=== PATIENT | female | born 1935 | race Caucasian/White ===

== ENCOUNTER → 2016-09-23 | Outpatient (REF) | payer OTHER ==
[2016-09-24 14:06] LABS: FERRITIN 30 NG/ML (8-252); PERCENT SATURATION 25.3 % (13.2-37.4); TOTAL IRON BINDING CAPACITY 400 UG/DL (250-450)
[2016-09-24 14:09] LABS: FOLATE > 24.0 NG/ML (>5.4)
[2016-09-24 14:13] LABS: VITAMIN B12 LEVEL 723 PG/ML (247-911)
== END ==
LOC: M LAB REF 08:46
PROVIDERS: ATTEND Internal Medicine
DX: D64.9 Anemia, unspecified (principal)

== ENCOUNTER → 2017-04-21 | Outpatient (CLI) | payer OTHER | LOC: M ONCR 13:23 | DX: C50.211 Malignant neoplasm of upper-inner quadrant of right female breast (principal) | CPT/HCPCS: G0463 ==

== ENCOUNTER → 2017-10-27 | Outpatient (CLI) | payer OTHER | LOC: M ONCR 14:16 | DX: C50.211 Malignant neoplasm of upper-inner quadrant of right female breast (principal) | CPT/HCPCS: G0463 ==

== ENCOUNTER → 2019-09-13 | Outpatient (REF) | payer MEDICARE ==
[2019-09-13 20:13] LABS: FOLATE 8.1 NG/ML; VITAMIN B12 LEVEL 438 PG/ML
== END ==
LOC: M LAB REF 17:11
PROVIDERS: ATTEND Internal Medicine
DX: F03.90 Unspecified dementia, unspecified severity, without behavioral disturbance, psychotic disturbance, mood disturbance, and anxiety (principal)

== ENCOUNTER → 2020-08-01 | Outpatient (REF) | payer MEDICARE | LOC: M LAB REF 16:06 | PROVIDERS: ATTEND Internal Medicine | DX: N39.0 Urinary tract infection, site not specified (principal) ==

== ENCOUNTER 2020-11-13 13:44 | Inpatient (IN) | payer MEDICARE ==
[~2020-11-13] VITALS: Ht 165.1 cm; Wt 50.2 kg
[2020-11-13] MEDS ORDERED: BUSP15TA47 (13:58)
[2020-11-13] MEDS ORDERED: TRAZ1TAB14 PO (13:58)
[2020-11-13] MEDS ORDERED: SERT50TA29 (13:58)
[2020-11-13] MEDS ORDERED: OMEP-218 (13:58)
[2020-11-13] MEDS ORDERED: LISI40TA4 (13:58)
[2020-11-13] MEDS ORDERED: TRAZ-252 PO (13:58)
[2020-11-13] MEDS ORDERED: NS 1,000 ML IV ONE (17:00)
[2020-11-13] MEDS ORDERED: ONDANSETRON 4MG/2ML VIAL IV ONE (17:00)
[2020-11-13 17:52] LABS: BASO # 0.1 10^3/uL (0.0-0.2); BASO % 0.3 % (0.0-1.0); EOS % 0.1 % (0.0-3.0); HEMATOCRIT 33.9 % (36.0-47.0); HEMOGLOBIN 10.9 g/dl (12.0-15.5); LYMPH # 1.3 10^3/uL (1.5-5.0); LYMPH % 7.5 % (24.0-44.0); MEAN CORPUSCULAR HEMOGLOBIN 28.9 pg (27.0-33.0); MEAN CORPUSCULAR HGB CONC 32.2 g/dl (32.0-36.5); MEAN CORPUSCULAR VOLUME 89.9 fl (80.0-96.0); MONO % 5.8 % (2.0-8.0); NEUTROPHILS # 14.9 10^3/uL (1.5-8.5); NEUTROPHILS % 85.6 % (36.0-66.0); PLATELET COUNT, AUTOMATED 354 10^3/uL (150-450); RED BLOOD COUNT 3.77 10^6/uL (4.00-5.40); WHITE BLOOD COUNT 17.4 10^3/uL (4.0-10.0)
[2020-11-13 18:28] LABS: ALBUMIN 3.4 GM/DL (3.2-5.2); BILIRUBIN,DIRECT 0.1 MG/DL (0.0-0.2); BILIRUBIN,TOTAL 0.4 MG/DL (0.2-1.0); CALCIUM LEVEL 9.5 MG/DL (8.8-10.2); CK-MB VALUE MASS 1.6 NG/ML (<3.6); CREATININE FOR GFR 1.16 MG/DL (0.55-1.30); GLOMERULAR FILTRATION RATE 47.2 (>32); MB/CK RELATIVE INDEX 8.89 (< OR =4); POTASSIUM SERUM 4.1 MEQ/L (3.5-5.1); TROPONIN I 0.05 NG/ML (< 0.10)
[2020-11-13] MEDS ORDERED: ISOVUE-370 76% 100ML VIAL As Ordered ONE (19:13)
--- NOTE | 2020-11-13 19:18 | REP ---
INDICATION: leukocytosis COMPARISON: 06/16/2017. TECHNIQUE: PA/Lateral FINDINGS: Lungs: Clear, no infiltrate. Heart: Normal in size. Mediastinum: There is calcification of the thoracic aorta. The mediastinal silhouette is unchanged. Pleural angles: Unremarkable.. Bones and soft tissues: There is osteopenia. There are degenerative changes of the spine. IMPRESSION: No acute pulmonary disease. <Electronically signed by Landen Gaona > 11/13/20 1918
--- NOTE | 2020-11-13 19:55 | REPVR ---
PROCEDURE INFORMATION: Exam: CT Abdomen And Pelvis With Contrast Exam date and time: 11/13/2020 7:32 PM Age: 85 years old Clinical indication: Nausea; Additional info: Nausea vomiting, abd pain TECHNIQUE: Imaging protocol: Computed tomography of the abdomen and pelvis with contrast. Radiation optimization: All CT scans at this facility use at least one of these dose optimization techniques: automated exposure control; mA and/or kV adjustment per patient size (includes targeted exams where dose is matched to clinical indication); or iterative reconstruction. Contrast material: ISOUVE 370; Contrast volume: 100 ml; Contrast route: INTRAVENOUS (IV); COMPARISON: CR Chest, 2 view PA, Lat 11/13/2020 6:14 PM FINDINGS: Lungs: Parenchymal scarring right middle lobe. Liver: There is a diffuse decrease in hepatic parenchymal density, consistent with steatosis. Liver cysts measure up to 1.3 cm. Liver otherwise unremarkable. Gallbladder and bile ducts: Normal. No calcified stones. No ductal dilation. Pancreas: There is diffuse pancreatic atrophy. Spleen: Normal. No splenomegaly. Adrenal glands: Normal. No mass. Kidneys and ureters: Simple renal cysts measure up to 2.2 cm in the left kidney. No follow-up suggested. Kidneys otherwise unremarkable. Stomach and bowel: Moderate diverticulosis is present in the distal colon. No diverticulitis. Appendix: No evidence of appendicitis. Intraperitoneal space: See "Vasculature" finding. Vasculature: The aortoiliac vessels demonstrate moderate atherosclerotic calcification. Cystic structure measuring 1.7 cm demonstrated adjacent to the portal vein of uncertain significance. No features to suggest an abscess. Finding may represent a mesenteric cyst. Lymph nodes: Unremarkable. No enlarged lymph nodes. Urinary bladder: Unremarkable as visualized. Reproductive: There has been a hysterectomy. Right ovarian cyst measures 1.9 cm. Bones/joints: Shallow dextroscoliosis. Severe central spinal stenosis L3-L4, moderate to severe central spinal stenosis L4-L5 bulging annulus L5-S1. Slight anterolisthesis of L3 on L4 and L4 on L5. Soft tissues: Unremarkable. Other findings: Osteoporosis. IMPRESSION: 1. There is a diffuse decrease in hepatic parenchymal density, consistent with steatosis. 2. There is diffuse pancreatic atrophy. 3. Moderate diverticulosis is present in the distal colon. No diverticulitis. 4. There has been a hysterectomy. 5. Right ovarian cyst measures 1.9 cm. No further imaging is recommended. (Reference: Chris) References: Chris et al. Management of Incidental Adnexal Findings on CT and MRI: A White Paper of the ACR Incidental Findings Committee, J Am Edward Radiol. 2019;17(2):248-254. 6. Cystic structure measuring 1.7 cm demonstrated adjacent to the portal vein of uncertain significance. No features to suggest an abscess. Finding may represent a mesenteric cyst. COMMENTS: Consistent with the [employer]'s Incidental Findings Committee white paper (J Am Edward Radiol 2018): Any incidental renal lesion less than 1 cm or classified as too small to characterize, or any incidental cystic renal lesion characterized as simple-appearing, is likely benign. No follow-up imaging is recommended for these lesions per consensus recommendations based on imaging criteria. Electronically signed by: Darnell Haley On 11/13/2020 19:55:29 PM
--- NOTE | 2020-11-13 20:39 | ECGEPIP ---
[facility] - ED Test Date: 2020-11-13 Pat Name: NOEMY SHERMAN Department: Room: - Gender: Female Manager Financial Reporting: [facility] : 1935 Requested By: SARIKA FAJARDO PA-C. Order Number: [id number] Reading MD: Rowan Monge Measurements Intervals [place] Rate: 84 P: 71 WA: 150 QRS: 49 QRSD: 78 T: 64 QT: 374 QTc: 441 Interpretive Statements Normal sinus rhythm NSTTW abnormalities No prior Electronically Signed on 11-13-2020 20:39:08 EDT by Rowan Monge
[2020-11-13] MEDS ORDERED: MAALOX 30 ML SUSP *UDC PO PRN (21:15)
[2020-11-13] MEDS ORDERED: MOM 30ML SUSPENSION UDC PO PRN (21:15)
[2020-11-13] MEDS ORDERED: ONDANSETRON 4MG/2ML VIAL IV PRN (21:15)
[2020-11-13] MEDS ORDERED: ACETAMINOPHEN TAB 650MG DOSE (2X325MG) PO PRN (21:15)
[2020-11-13] MEDS ORDERED: OMEP1CAP73 PO (21:22)
[2020-11-13] MEDS ORDERED: LISI40TA4 PO (21:22)
[2020-11-13] MEDS ORDERED: BUSP15TA47 PO (21:22)
[2020-11-13] MEDS ORDERED: SERT50TA29 PO (21:28)
[2020-11-13] MEDS ORDERED: TRAZ1TAB10 PO (21:28)
[2020-11-13] MEDS ORDERED: TRAZ-186 PO (21:28)
[2020-11-13] MEDS ORDERED: HOME MED LIST COMPLETE! XX SCH (21:30)
[2020-11-13] MEDS ORDERED: traZODone 50 MG TAB PO ONE (21:45)
--- NOTE | 2020-11-13 21:52 | HPEPDOC ---
[facility] Medical History & Physical Date of Admission Nov 13, 2020 Date of Service: Nov 13, 2020 Attending Physician: CRISTIAN CASTELLON MD History and Physical CHIEF COMPLAINT: [85 y/o female presents with 2 weeks of n/v/d] HISTORY OF PRESENT ILLNESS: [This is an 85 y/o female with a pmh of advanced dementia, htn, breast ca s/p lumpectomy who reports to our ED on 11/13 with one of her home health aides with a cc of n/v/d and increasing fatigue over the past 2 weeks. Patient herself is unable to provide me any history. Patient's home health aide in the room tells me that they first noticed her symptoms of vomiting approx 2 weeks ago and noticed diarrhea begin soon after. Aides states that the symptoms come and go and do not feel as though the vomiting is related to food. Aides state that her appetite has waxed and waned in this time period. They have never noted fevers, syncope, and deny recent falls.] PAST MEDICAL HISTORY: 1. [See HPI PAST SURGICAL HISTORY: 1. [Lumpectomy]. SOCIAL HISTORY: Patient lives at home with 19/10 home health aide support, rest of social hx unable to be obtained d/t mentation. FAMILY HISTORY: Unable to obtain d/t mentation. ALLERGIES: Please see below. REVIEW OF SYSTEMS: Unable to obtain d/t mentation. HOME MEDICATIONS: Please see below. PHYSICAL EXAMINATION: VITAL SIGNS: Please see below. GENERAL APPEARANCE: [This is a frail appearing 85 y/o female. She is resting in bed and does not appear to be in any acute distress.]. HEENT: [No mass or lesion. EOMI. No scleral icterus. Nares patent. Oral mucosa dry.]. CARDIOVASCULAR: [Regular rate, rhythm. No murmurs, rubs, gallops]. LUNGS: [Good air flow b/l. No wheezing, rales, rhonchi.]. ABDOMEN: [Soft, nontender]. MUSCULOSKELETAL: [No joint deformity noted]. EXTREMITIES: [No pedal edema appreciated. No overlying skin changes. Pulses intact.]. NEUROLOGICAL: [Patient is confused.]. PSYCHIATRIC: [Patient is confused.]. LABORATORY DATA: See below. IMAGING: [CXR: Pleural angles: Unremarkable.. Bones and soft tissues: There is osteopenia. There are degenerative changes of the spine. IMPRESSION: No acute pulmonary disease. CT Abd/pelvis: References: Chris et al. Management of Incidental Adnexal Findings on CT and MRI: A White Paper of the ACR Incidental Findings Committee, J Am Edward Radiol. 2019;17(2):248-254. 6. Cystic structure measuring 1.7 cm demonstrated adjacent to the portal vein of uncertain significance. No features to suggest an abscess. Finding may represent a mesenteric cyst. ] MICROBIOLOGY: Please see below. ASSESSMENT: [This is an 85 y/o female with a pmh of advanced dementia, htn, breast ca s/p lumpectomy who reports to our ED on 11/13 with one of her home health aides with a cc of n/v/d and increasing fatigue over the past 2 weeks]. . PLAN: 1. [SIRS - patient meets sirs criteria upon presentation with tachycardia and wbc of 17.4 - source is UTI vs. gastroenteritis - UA is mildly +, gi panel sent - will begin rocephin - zofran for n/v - patient received fluid boluses in ed, will give IVF on the floor - admit to med surg for tx 2. Dementia - continue trazodone, buspar, ssri - patient sitter 3. HTN - continue lisinopril 4. GERD - continue omeprazole 5 Protein calorie malnutrition BMI is 18.5 DVT prophylaxis - mechanical]. Vital Signs Vital Signs Date Time Temp Pulse Resp B/P (MAP) Pulse Ox O2 Delivery O2 Flow Rate FiO2 11/13/20 18:05 88 16 146/68 (94) 94 Room Air 11/13/20 13:45 97.9 Laboratory Data Labs 24H Laboratory Tests 2 11/13/20 17:38: Immature Granulocyte % (Auto) 0.7, Neutrophils (%) (Auto) 85.6H, Lymphocytes (%) (Auto) 7.5L, Monocytes (%) (Auto) 5.8, Eosinophils (%) (Auto) 0.1, Basophils (%) (Auto) 0.3, Neutrophils # (Auto) 14.9H, Lymphocytes # (Auto) 1.3L, Monocytes # (Auto) 1.0H, Eosinophils # (Auto) 0.0, Basophils # (Auto) 0.1, Nucleated Red Blood Cells % (auto) 0.0, Anion Gap 5L, Glomerular Filtration Rate 47.2, Lactic Acid Level 0.9, Calcium Level 9.5, Total Bilirubin 0.4, Direct Bilirubin 0.1, Aspartate Amino Transf (AST/SGOT) 12, Alanine Aminotransferase (ALT/SGPT) 12, Alkaline Phosphatase 69, Total Creatine Kinase 18L, Creatine Kinase MB 1.6, Creatine Kinase MB Relative Index 8.89H, Troponin I 0.05, Total Protein 7.0, Albumin 3.4, Albumin/Globulin Ratio 0.9L, Lipase 57L 11/13/20 17:41: Urine Color YELLOW, Urine Appearance HAZY, Urine pH 5.0, Urine Specific [place] 1.019, Urine Protein 1+H, Urine Glucose (UA) NEGATIVE, Urine Ketones TRACEH, Urine Blood NEGATIVE, Urine Nitrite NEGATIVE, Urine Bilirubin NEGATIVE, Urine Urobilinogen 0.2, Urine Leukocyte Esterase 2+H, Urine WBC (Auto) 13H, Urine RBC (Auto) 2, Urine Hyaline Casts (Auto) 6, Urine Bacteria (Auto) 1+H, Urine Squamous Epithelial Cells 2, Urine Mucus (Auto) SMALL, Urine Sperm (Auto) 11/13/20 21:20: CBC/BMP Laboratory Tests 11/13/20 17:38 Microbiology Microbiology 11/13/20 Urine Culture, Received Pending Home Medications Scheduled Buspirone HCl (Buspirone HCl) 15 Mg Tablet, 15 MG PO BID Lisinopril (Lisinopril) 40 Mg Tablet, 40 MG PO QHS Omeprazole (Omeprazole) 20 Mg Capsule.dr, 20 MG PO DAILY Sertraline HCl (Sertraline HCl) 50 Mg Tablet, 75 MG PO BID Trazodone HCl (Trazodone HCl) 50 Mg Tablet, 25 MG PO DAILY TAKES AT NOON Trazodone HCl (Trazodone HCl) 50 Mg Tablet, 75 MG PO QHS Allergies Coded Allergies: No Known Allergies (Unverified , 11/13/20) A-FIB/CHADSVASC A-FIB History Current/History of A-Fib/PAF?: No VINAY LARSEN Nov 13, 2020 21:52 CRISTIAN CASTELLON MD Nov 19, 2020 06:44
[2020-11-13] MEDS ORDERED: PILL CUTTER 1 EACH XX ONE (21:55)
[2020-11-13] MEDS: NS 1,000 ML IV SCH (22:00)
[2020-11-13] MEDS ORDERED: PILL CUTTER 1 EACH XX PRN (22:05)
[2020-11-13] MEDS: lisinopriL 40 MG TAB PO SCH (22:07)
[2020-11-13] MEDS: busPIRone 5 MG TAB PO SCH (22:08)
[2020-11-13] MEDS: SERTRALINE HCL 25 MG TABLET PO SCH (22:11)
[2020-11-13] MEDS: cefTRIAXone SOD 1 GM in D5W MINI-BAG PLUS 50 ML IV SCH (22:14)
[2020-11-14] VITALS (8 sets, daily range): BP systolic 148–200; BP diastolic 6–104
[2020-11-14] MEDS ORDERED: HALOPERIDOL 5MG/ML VIAL (J1630 PER 1) IV PRN (02:25)
[2020-11-14] MEDS ORDERED: HALOPERIDOL 5MG/ML VIAL (J1630 PER 1) IM ONE (02:30)
[2020-11-14] MEDS: HALOPERIDOL 5MG/ML VIAL (J1630 PER 1) IM PRN ×4 (02:36→22:25)
[2020-11-14 06:12] LABS: HEMATOCRIT 29.3 % (36.0-47.0); HEMOGLOBIN 9.3 g/dl (12.0-15.5); MEAN CORPUSCULAR HEMOGLOBIN 28.8 pg (27.0-33.0); MEAN CORPUSCULAR HGB CONC 31.7 g/dl (32.0-36.5); MEAN CORPUSCULAR VOLUME 90.7 fl (80.0-96.0); PLATELET COUNT, AUTOMATED 290 10^3/uL (150-450); RED BLOOD COUNT 3.23 10^6/uL (4.00-5.40); WHITE BLOOD COUNT 12.2 10^3/uL (4.0-10.0)
[2020-11-14 06:31] LABS: BLOOD UREA NITROGEN 17 MG/DL (7-18); CALCIUM LEVEL 9.1 MG/DL (8.8-10.2); CARBON DIOXIDE LEVEL 29 MEQ/L (21-32); CHLORIDE LEVEL 110 MEQ/L (98-107); CREATININE FOR GFR 0.89 MG/DL (0.55-1.30); GLOMERULAR FILTRATION RATE > 60.0 (>32); GLUCOSE, FASTING 81 MG/DL (70-100); MAGNESIUM LEVEL 1.9 MG/DL (1.8-2.4); POTASSIUM SERUM 3.9 MEQ/L (3.5-5.1); SODIUM LEVEL 142 MEQ/L (136-145)
[2020-11-14] MEDS ORDERED: **hydrALAZINE** 50 MG TAB PO ONE (07:35)
[2020-11-14] MEDS: NS 1,000 ML IV SCH ×2 (08:22→19:42)
[2020-11-14] MEDS: SERTRALINE HCL 25 MG TABLET PO SCH ×2 (09:00→19:44)
[2020-11-14] MEDS: traZODone 25MG PER 1/2 TABLET PO SCH (09:00)
[2020-11-14] MEDS: busPIRone 5 MG TAB PO SCH ×2 (09:00→19:43)
[2020-11-14] MEDS: OMEPRAZOLE 20 MG CAP PO SCH (09:00)
--- NOTE | 2020-11-14 14:37 | ECGEPIP ---
[facility] Test Date: 2020-11-14 Pat Name: NOEMY SHERMAN Department: Room: [place] [address] Gender: Female Pass Worker: KARIE : 1935 Requested By: JAIDEN CHANEY Order Number: [id number] Reading MD: Abdirahman Quigley Measurements Intervals [place] Rate: 83 P: 57 CO: 146 QRS: 27 QRSD: 82 T: 55 QT: 374 QTc: 439 Interpretive Statements Normal sinus rhythm Within normal limits. Electronically Signed on 11-14-2020 14:36:44 EDT by Abdirahman Quigley
[2020-11-14] MEDS: ASPIRIN 325 MG TAB PO ONE ×2 (15:02→17:03)
[2020-11-14] MEDS: LORazepam 2 MG/ML VIAL IV PRN (15:03)
[2020-11-14 15:04] LABS: FREE T4 1.11 NG/DL (0.76-1.46); THYROID STIMULATING HORMONE 0.688 uIU/ML (0.358-3.740)
--- NOTE | 2020-11-14 16:39 | IPNPDOC ---
Date Seen The patient was seen on 11/14/20. Progress Note SUBJECTIVE: Patient seen and examined at bedside. She appears visibly confused but is alert. She states that she has no pain. No shortness of breath. No nausea vomiting or diarrhea. OBJECTIVE PHYSICAL EXAMINATION: VITAL SIGNS: please see below General: NAD, comfortable HEENT: PERRLA, EOMI, sclerae clear Neck: supple, normal ROM, no JVD Respiratory: lungs CTAB, no wheeze, no rales, no crackles CVS: RRR, normal S1, S2, no murmurs Abdo: soft, no masses, no hepatosplenomegaly, BS+, no rebound tenderness Extremities: no edema, pulses 2+ MSK: no joint deformities, normal ROM Neuro: no focal neuro deficits, moving all 4 extremities, CN2-12 intact. Strength 5/5 in all 4 extremities. No nystagmus. Psych: calm, cooperative, AAO x 3 LABORATORY DATA, IMAGING STUDIES, MICROBIOLOGY: Please see below. Echocardiogram: ordered on 11/14/20 DVT prophylaxis ordered?: SCDs. TEDs. ASSESSMENT AND PLAN: This is an 85 y/o female with a pmh of advanced dementia, htn, breast ca s/p lumpectomy who reports to our ED on 11/13 with one of her home health aides with a cc of n/v/d and increasing fatigue over the past 2 weeks PROBLEMS: 1. [SIRS - patient meets sirs criteria upon presentation with tachycardia and wbc of 17.4 - source is UTI vs. gastroenteritis - UA is mildly +, culture negative, blood cultures pending. - GI panel is pending - c/w rocephin - zofran for n/v - patient received fluid boluses in ed, will give IVF on the floor - admit to med surg for tx 2. Dementia - continue trazodone, buspar, ssri - patient sitter 3. Elevated troponin - patient is not reporting any chest pain - trop 0.05. 0.12.0.16 - EKG shows no acute ischemic changes - ordered ASA 325 mg, lipitor 80 - 2D echo ordered - I discussed with Dr. Bauman, belives this to be a Type II [place] in setting of SIRS/Sepsis, and not true ACS - will continue to trend troponins. For now, ASA/statin. 4. HTN - continue lisinopril 5. GERD - continue omeprazole DVT prophylaxis - mechanical VS, [facility]&O[facility]O Vital Signs Date Time Temp Pulse Resp B/P (MAP) Pulse Ox O2 Delivery O2 Flow Rate FiO2 11/14/20 14:00 98.7 93 17 150/6 (54) 97 Room Air I&O- Last 24 Hours up to 6 AM 11/14/20 06:00 Intake Total 725 ml Balance 725 ml Laboratory Data 24H LABS Laboratory Tests 2 11/13/20 17:38: Immature Granulocyte % (Auto) 0.7, Neutrophils (%) (Auto) 85.6H, Lymphocytes (%) (Auto) 7.5L, Monocytes (%) (Auto) 5.8, Eosinophils (%) (Auto) 0.1, Basophils (%) (Auto) 0.3, Neutrophils # (Auto) 14.9H, Lymphocytes # (Auto) 1.3L, Monocytes # (Auto) 1.0H, Eosinophils # (Auto) 0.0, Basophils # (Auto) 0.1, Nucleated Red Blood Cells % (auto) 0.0, Anion Gap 5L, Glomerular Filtration Rate 47.2, Lactic Acid Level 0.9, Calcium Level 9.5, Total Bilirubin 0.4, Direct Bilirubin 0.1, Aspartate Amino Transf (AST/SGOT) 12, Alanine Aminotransferase (ALT/SGPT) 12, Alkaline Phosphatase 69, Total Creatine Kinase 18L, Creatine Kinase MB 1.6, Creatine Kinase MB Relative Index 8.89H, Troponin I 0.05, Total Protein 7.0, Albumin 3.4, Albumin/Globulin Ratio 0.9L, Lipase 57L 11/13/20 17:41: Urine Color YELLOW, Urine Appearance HAZY, Urine pH 5.0, Urine Specific [place] 1.019, Urine Protein 1+H, Urine Glucose (UA) NEGATIVE, Urine Ketones TRACEH, Urine Blood NEGATIVE, Urine Nitrite NEGATIVE, Urine Bilirubin NEGATIVE, Urine Urobilinogen 0.2, Urine Leukocyte Esterase 2+H, Urine WBC (Auto) 13H, Urine RBC (Auto) 2, Urine Hyaline Casts (Auto) 6, Urine Bacteria (Auto) 1+H, Urine Squamous Epithelial Cells 2, Urine Mucus (Auto) SMALL, Urine Sperm (Auto) 11/13/20 21:20: Coronavirus (COVID-19)(PCR) NEGATIVE 11/14/20 05:30: Nucleated Red Blood Cells % (auto) 0.0, Anion Gap 3L, Glomerular Filtration Rate > 60.0, Calcium Level 9.1, Magnesium Level 1.9 11/14/20 08:30: Troponin I 0.12#H 11/14/20 14:18: Troponin I 0.16#H, Lactic Acid Level 0.7, Thyroid Stimulating Hormone (TSH) 0.688, Free Thyroxine 1.11 CBC/BMP Laboratory Tests 11/13/20 17:38 11/14/20 05:30 Microbiology Microbiology 11/14/20 Blood Culture, Received Pending 11/14/20 Blood Culture, Received Pending 11/13/20 Urine Culture - Final, Complete JAIDEN CHANEY MD Nov 14, 2020 16:39
[2020-11-14] MEDS: traZODone 50 MG TAB PO SCH (19:43)
[2020-11-14] MEDS: ATORVASTATIN 20 MG TAB PO SCH (19:44)
[2020-11-14] MEDS: lisinopriL 40 MG TAB PO SCH (19:44)
[2020-11-14] MEDS: cefTRIAXone SOD 1 GM in D5W MINI-BAG PLUS 50 ML IV SCH (22:25)
[2020-11-15 06:00] VITALS: BP 153/89
[2020-11-15] MEDS: NS 1,000 ML IV SCH ×2 (06:23→16:51)
[2020-11-15] MEDS: ASPIRIN 81MG ENTERIC TABLET PO SCH (10:05)
[2020-11-15] MEDS: busPIRone 5 MG TAB PO SCH ×2 (10:05→21:28)
[2020-11-15] MEDS: SERTRALINE HCL 25 MG TABLET PO SCH ×2 (10:06→21:28)
[2020-11-15] MEDS: traZODone 25MG PER 1/2 TABLET PO SCH (10:06)
[2020-11-15] MEDS: OMEPRAZOLE 20 MG CAP PO SCH (10:06)
--- NOTE | 2020-11-15 17:50 | IPNPDOC ---
Date Seen The patient was seen on 11/15/20. Progress Note SUBJECTIVE: Patient seen and examined at bedside. She appears visibly confused but is alert. She states that she has no pain. No shortness of breath. No nausea vomiting or diarrhea. OBJECTIVE PHYSICAL EXAMINATION: VITAL SIGNS: please see below General: NAD, comfortable HEENT: PERRLA, EOMI, sclerae clear Neck: supple, normal ROM, no JVD Respiratory: lungs CTAB, no wheeze, no rales, no crackles CVS: RRR, normal S1, S2, no murmurs Abdo: soft, no masses, no hepatosplenomegaly, BS+, no rebound tenderness Extremities: no edema, pulses 2+ MSK: no joint deformities, normal ROM Neuro: no focal neuro deficits, moving all 4 extremities, CN2-12 intact. Strength 5/5 in all 4 extremities. No nystagmus. Psych: calm, cooperative, AAO x 3 LABORATORY DATA, IMAGING STUDIES, MICROBIOLOGY: Please see below. Echocardiogram: ordered on 11/14/20 DVT prophylaxis ordered?: SCDs. TEDs. ASSESSMENT AND PLAN: This is an 85 y/o female with a pmh of advanced dementia, htn, breast ca s/p lumpectomy who reports to our ED on 11/13 with one of her home health aides with a cc of n/v/d and increasing fatigue over the past 2 weeks PROBLEMS: 1. [SIRS - patient meets sirs criteria upon presentation with tachycardia and wbc of 17.4 - source is UTI vs. gastroenteritis - UA is mildly +, culture negative, blood cultures pending. - GI panel is pending - c/w rocephin - zofran for n/v - patient received fluid boluses in ed, will give IVF on the floor - admit to med surg for tx 2. Dementia - continue trazodone, buspar, ssri - patient sitter 3. Elevated troponin - patient is not reporting any chest pain - trop 0.05. 0.12.0.16. 0.15 - EKG shows no acute ischemic changes - ordered ASA 325 mg, lipitor 80 - 2D echo ordered - I discussed with Dr. Bauman, belives this to be a Type II [place] in setting of SIRS/Sepsis, and not true ACS - ASA/statin 4. HTN - continue lisinopril 5. GERD - continue omeprazole DVT prophylaxis - mechanical VS, I&O, 24H, Fishbone Vital Signs/I&O Vital Signs Date Time Temp Pulse Resp B/P (MAP) Pulse Ox O2 Delivery O2 Flow Rate FiO2 11/15/20 06:00 97.6 88 18 153/89 (110) 95 Room Air I&O- Last 24 Hours up to 6 AM 11/15/20 06:00 Intake Total 1460 ml Output Total 950 ml Balance 510 ml Laboratory Data 24H LABS Laboratory Tests 2 11/14/20 19:08: Troponin I 0.15H Microbiology Microbiology 11/14/20 Blood Culture - Preliminary, Resulted No growth after 24 hours . All specim... 11/14/20 Blood Culture - Preliminary, Resulted No growth after 24 hours . All specim... 11/13/20 Urine Culture - Final, Complete JAIDEN CHANEY MD Nov 15, 2020 17:50
[2020-11-15 18:28] LABS: BASO # 0.1 10^3/uL (0.0-0.2); BASO % 0.6 % (0.0-1.0); EOS # 0.1 10^3/uL (0.0-0.5); EOS % 0.9 % (0.0-3.0); HEMATOCRIT 32.8 % (36.0-47.0); LYMPH # 1.3 10^3/uL (1.5-5.0); LYMPH % 10.3 % (24.0-44.0); MEAN CORPUSCULAR HEMOGLOBIN 29.3 pg (27.0-33.0); MEAN CORPUSCULAR HGB CONC 33.5 g/dl (32.0-36.5); MEAN CORPUSCULAR VOLUME 87.5 fl (80.0-96.0); MONO # 1.1 10^3/uL (0.0-0.8); MONO % 8.5 % (2.0-8.0); NEUTROPHILS # 9.9 10^3/uL (1.5-8.5); NEUTROPHILS % 79.3 % (36.0-66.0); PLATELET COUNT, AUTOMATED 359 10^3/uL (150-450); RED BLOOD COUNT 3.75 10^6/uL (4.00-5.40); WHITE BLOOD COUNT 12.5 10^3/uL (4.0-10.0)
[2020-11-15 19:01] LABS: ALBUMIN 3.3 GM/DL (3.2-5.2); ALT/SGPT 15 U/L (12-78); BILIRUBIN,TOTAL 0.4 MG/DL (0.2-1.0); BLOOD UREA NITROGEN 8 MG/DL (7-18); CALCIUM LEVEL 9.3 MG/DL (8.8-10.2); CARBON DIOXIDE LEVEL 23 MEQ/L (21-32); CHLORIDE LEVEL 111 MEQ/L (98-107); CREATININE FOR GFR 0.67 MG/DL (0.55-1.30); GLOMERULAR FILTRATION RATE > 60.0 (>32); GLUCOSE, FASTING 100 MG/DL (70-100); MAGNESIUM LEVEL 1.6 MG/DL (1.8-2.4); POTASSIUM SERUM 3.7 MEQ/L (3.5-5.1); SODIUM LEVEL 141 MEQ/L (136-145); TOTAL PROTEIN 6.7 GM/DL (6.4-8.2)
[2020-11-15] MEDS: cefTRIAXone SOD 1 GM in D5W MINI-BAG PLUS 50 ML IV SCH (21:27)
[2020-11-15] MEDS: ATORVASTATIN 20 MG TAB PO SCH (21:28)
[2020-11-15] MEDS: traZODone 50 MG TAB PO SCH (21:29)
[2020-11-15] MEDS: lisinopriL 40 MG TAB PO SCH (21:29)
[2020-11-15 22:00] VITALS: BP 134/87
[2020-11-16] MEDS: NS 1,000 ML IV SCH (03:32)
[2020-11-16 06:00] VITALS: BP 145/90
[2020-11-16 07:05] LABS: BASO # 0.1 10^3/uL (0.0-0.2); BASO % 0.7 % (0.0-1.0); EOS # 0.2 10^3/uL (0.0-0.5); EOS % 1.4 % (0.0-3.0); HEMATOCRIT 31.2 % (36.0-47.0); HEMOGLOBIN 10.2 g/dl (12.0-15.5); LYMPH # 1.6 10^3/uL (1.5-5.0); LYMPH % 12.8 % (24.0-44.0); MEAN CORPUSCULAR HEMOGLOBIN 28.4 pg (27.0-33.0); MEAN CORPUSCULAR HGB CONC 32.7 g/dl (32.0-36.5); MEAN CORPUSCULAR VOLUME 86.9 fl (80.0-96.0); MONO # 1.2 10^3/uL (0.0-0.8); MONO % 9.8 % (2.0-8.0); NEUTROPHILS # 9.3 10^3/uL (1.5-8.5); NEUTROPHILS % 74.7 % (36.0-66.0); PLATELET COUNT, AUTOMATED 356 10^3/uL (150-450); RED BLOOD COUNT 3.59 10^6/uL (4.00-5.40); WHITE BLOOD COUNT 12.5 10^3/uL (4.0-10.0)
[2020-11-16 07:27] LABS: ALBUMIN 2.8 GM/DL (3.2-5.2); ALT/SGPT 12 U/L (12-78); BILIRUBIN,TOTAL 0.4 MG/DL (0.2-1.0); BLOOD UREA NITROGEN 7 MG/DL (7-18); CALCIUM LEVEL 8.8 MG/DL (8.8-10.2); CARBON DIOXIDE LEVEL 23 MEQ/L (21-32); CHLORIDE LEVEL 109 MEQ/L (98-107); CREATININE FOR GFR 0.64 MG/DL (0.55-1.30); GLOMERULAR FILTRATION RATE > 60.0 (>32); GLUCOSE, FASTING 82 MG/DL (70-100); MAGNESIUM LEVEL 1.6 MG/DL (1.8-2.4); POTASSIUM SERUM 3.6 MEQ/L (3.5-5.1); SODIUM LEVEL 139 MEQ/L (136-145); TOTAL PROTEIN 5.9 GM/DL (6.4-8.2)
--- NOTE | 2020-11-16 09:53 | IPNPDOC ---
Date Seen The patient was seen on 11/16/20. Progress Note SUBJECTIVE: Patient seen and examined at bedside. She appears visibly confused but is alert. She states that she has no chest pain, no cough, no shortness of breath or subjective fevers or chills. She has been afebrile throughout the admission. OBJECTIVE PHYSICAL EXAMINATION: VITAL SIGNS: please see below General: NAD, comfortable HEENT: PERRLA, EOMI, sclerae clear Neck: supple, normal ROM, no JVD Respiratory: lungs CTAB, no wheeze, no rales, no crackles CVS: RRR, normal S1, S2, no murmurs Abdo: soft, no masses, no hepatosplenomegaly, BS+, no rebound tenderness Extremities: no edema, pulses 2+ MSK: no joint deformities, normal ROM Neuro: no focal neuro deficits, moving all 4 extremities, CN2-12 intact. Strength 5/5 in all 4 extremities. No nystagmus. Psych: calm, cooperative, AAO x 1 LABORATORY DATA, IMAGING STUDIES, MICROBIOLOGY: Please see below. Echocardiogram: ordered on 11/14/20 DVT prophylaxis ordered?: SCDs. TEDs. ASSESSMENT AND PLAN: This is an 85 y/o female with a pmh of advanced dementia, htn, breast ca s/p lumpectomy who reports to our ED on 11/13 with one of her home health aides with a cc of n/v/d and increasing fatigue over the past 2 weeks PROBLEMS: 1. SIRS - resolved. WBC trended down to 12. - will obtain procalcitonin level to r/o infection, as patient does not display signs of active infection. - possible source is UTI vs GI? Has no GI symptoms. - Urine Cx is negative. Blood cultures prelim neg at 72 hours - c/w rocephin - zofran for n/v - DC IVF. Patient tolerating diet - admit to med surg for tx 2. Dementia - continue trazodone, buspar, ssri - patient sitter - patient has been pleasant and calm. 3. Elevated troponin - patient is not reporting any chest pain - trop 0.05. 0.12.0.16. 0.15 - EKG shows no acute ischemic changes - ordered ASA 325 mg, lipitor 80 - 2D echo ordered - I discussed with Dr. Bauman, believes this to be a Type II [place] in setting of SIRS/Sepsis, and not true ACS - ASA/statin 4. HTN - continue lisinopril 5. GERD - continue omeprazole DVT prophylaxis - mechanical Dispo: currently working with PFS to determine safe DC plan. Per PFS report, patient will be unable to receive enough care at home, and will be considering [facility] facility on DC. VS, I&O, 24H, Fishbone Vital Signs/I&O Vital Signs Date Time Temp Pulse Resp B/P (MAP) Pulse Ox O2 Delivery O2 Flow Rate FiO2 11/16/20 06:00 98.7 82 18 145/90 (108) 94 Room Air I&O- Last 24 Hours up to 6 AM 11/16/20 06:00 Intake Total 3265 ml Output Total 900 ml Balance 2365 ml Laboratory Data 24H LABS Laboratory Tests 2 11/15/20 18:16: Immature Granulocyte % (Auto) 0.4, Neutrophils (%) (Auto) 79.3H, Lymphocytes (%) (Auto) 10.3L, Monocytes (%) (Auto) 8.5H, Eosinophils (%) (Auto) 0.9, Basophils (%) (Auto) 0.6, Neutrophils # (Auto) 9.9H, Lymphocytes # (Auto) 1.3L, Monocytes # (Auto) 1.1H, Eosinophils # (Auto) 0.1, Basophils # (Auto) 0.1, Nucleated Red Blood Cells % (auto) 0.0, Anion Gap 7L, Glomerular Filtration Rate > 60.0, Calcium Level 9.3, Magnesium Level 1.6L, Total Bilirubin 0.4, Aspartate Amino Transf (AST/SGOT) 27, Alanine Aminotransferase (ALT/SGPT) 15, Alkaline Phosphatase 76, Total Protein 6.7, Albumin 3.3, Albumin/Globulin Ratio 1.0L 11/16/20 05:31: Immature Granulocyte % (Auto) 0.6, Neutrophils (%) (Auto) 74.7H, Lymphocytes (%) (Auto) 12.8L, Monocytes (%) (Auto) 9.8H, Eosinophils (%) (Auto) 1.4, Basophils (%) (Auto) 0.7, Neutrophils # (Auto) 9.3H, Lymphocytes # (Auto) 1.6, Monocytes # (Auto) 1.2H, Eosinophils # (Auto) 0.2, Basophils # (Auto) 0.1, Nucleated Red Blood Cells % (auto) 0.0, Anion Gap 7L, Glomerular Filtration Rate > 60.0, Calcium Level 8.8, Magnesium Level 1.6L, Total Bilirubin 0.4, Aspartate Amino Transf (AST/SGOT) 22, Alanine Aminotransferase (ALT/SGPT) 12, Alkaline Phosphatase 66, Total Protein 5.9L, Albumin 2.8L, Albumin/Globulin Ratio 0.9L CBC/BMP Laboratory Tests 11/15/20 18:16 11/16/20 05:31 Microbiology Microbiology 11/14/20 Blood Culture - Preliminary, Resulted No Growth after 48 hours. All Specime... 11/14/20 Blood Culture - Preliminary, Resulted No Growth after 48 hours. All Specime... 11/13/20 Urine Culture - Final, Complete JAIDEN CHANEY MD Nov 16, 2020 09:53
[2020-11-16] MEDS: traZODone 25MG PER 1/2 TABLET PO SCH (11:35)
[2020-11-16] MEDS: ASPIRIN 81MG ENTERIC TABLET PO SCH (11:35)
[2020-11-16] MEDS: OMEPRAZOLE 20 MG CAP PO SCH (11:35)
[2020-11-16] MEDS: SERTRALINE HCL 25 MG TABLET PO SCH ×2 (11:35→22:20)
[2020-11-16] MEDS: busPIRone 5 MG TAB PO SCH ×2 (11:38→22:45)
[2020-11-16 14:00] VITALS: BP 188/110
[2020-11-16] MEDS: HEPARIN SOD (PORCINE) 5000UNITS/ML 1ML VIAL/SYRINGE SQ SCH ×2 (16:28→22:00)
[2020-11-16] MEDS ORDERED: **hydrALAZINE** 50 MG TAB PO ONE (16:30)
[2020-11-16 17:41] VITALS: BP 179/92
[2020-11-16 22:00] VITALS: BP 162/97
[2020-11-16] MEDS: lisinopriL 40 MG TAB PO SCH (22:18)
[2020-11-16] MEDS: ATORVASTATIN 20 MG TAB PO SCH (22:20)
[2020-11-16] MEDS: traZODone 50 MG TAB PO SCH (22:21)
[2020-11-16] MEDS: cefTRIAXone SOD 1 GM in D5W MINI-BAG PLUS 50 ML IV SCH (22:39)
[2020-11-17] MEDS: HEPARIN SOD (PORCINE) 5000UNITS/ML 1ML VIAL/SYRINGE SQ SCH ×4 (05:06→22:23)
[2020-11-17 06:00] VITALS: BP 112/90
[2020-11-17 06:48] LABS: BASO # 0.1 10^3/uL (0.0-0.2); BASO % 0.9 % (0.0-1.0); EOS # 0.2 10^3/uL (0.0-0.5); EOS % 1.9 % (0.0-3.0); HEMATOCRIT 33.6 % (36.0-47.0); HEMOGLOBIN 11.2 g/dl (12.0-15.5); LYMPH # 1.7 10^3/uL (1.5-5.0); LYMPH % 18.9 % (24.0-44.0); MEAN CORPUSCULAR HEMOGLOBIN 28.4 pg (27.0-33.0); MEAN CORPUSCULAR HGB CONC 33.3 g/dl (32.0-36.5); MEAN CORPUSCULAR VOLUME 85.1 fl (80.0-96.0); MONO # 1.1 10^3/uL (0.0-0.8); MONO % 11.6 % (2.0-8.0); NEUTROPHILS # 6.1 10^3/uL (1.5-8.5); NEUTROPHILS % 66.3 % (36.0-66.0); PLATELET COUNT, AUTOMATED 380 10^3/uL (150-450); RED BLOOD COUNT 3.95 10^6/uL (4.00-5.40); WHITE BLOOD COUNT 9.2 10^3/uL (4.0-10.0)
[2020-11-17 07:11] LABS: ALBUMIN 2.5 GM/DL (3.2-5.2); ALT/SGPT 11 U/L (12-78); BILIRUBIN,TOTAL 0.5 MG/DL (0.2-1.0); BLOOD UREA NITROGEN 9 MG/DL (7-18); CALCIUM LEVEL 8.8 MG/DL (8.8-10.2); CARBON DIOXIDE LEVEL 22 MEQ/L (21-32); CHLORIDE LEVEL 108 MEQ/L (98-107); CREATININE FOR GFR 0.69 MG/DL (0.55-1.30); GLOMERULAR FILTRATION RATE > 60.0 (>32); GLUCOSE, FASTING 77 MG/DL (70-100); MAGNESIUM LEVEL 1.5 MG/DL (1.8-2.4); POTASSIUM SERUM 3.3 MEQ/L (3.5-5.1); SODIUM LEVEL 140 MEQ/L (136-145); TOTAL PROTEIN 5.9 GM/DL (6.4-8.2)
[2020-11-17] MEDS ORDERED: POTASSIUM CHLORIDE 10 MEQ SR TABLET PO ONE (09:00)
[2020-11-17] MEDS: SERTRALINE HCL 25 MG TABLET PO SCH ×3 (09:33→22:21)
[2020-11-17] MEDS: traZODone 25MG PER 1/2 TABLET PO SCH (09:33)
[2020-11-17] MEDS: ASPIRIN 81MG ENTERIC TABLET PO SCH (09:33)
[2020-11-17] MEDS: OMEPRAZOLE 20 MG CAP PO SCH (09:33)
[2020-11-17] MEDS: busPIRone 5 MG TAB PO SCH ×3 (09:33→22:22)
--- NOTE | 2020-11-17 10:29 | IPNPDOC ---
Date Seen The patient was seen on 11/17/20. Progress Note SUBJECTIVE: Patient seen and examined at bedside. She appears visibly confused but is alert. She states that she has no chest pain, no cough, no shortness of breath or subjective fevers or chills. She has been afebrile throughout the admission. OBJECTIVE PHYSICAL EXAMINATION: VITAL SIGNS: please see below General: NAD, comfortable HEENT: PERRLA, EOMI, sclerae clear Neck: supple, normal ROM, no JVD Respiratory: lungs CTAB, no wheeze, no rales, no crackles CVS: RRR, normal S1, S2, no murmurs Abdo: soft, no masses, no hepatosplenomegaly, BS+, no rebound tenderness Extremities: no edema, pulses 2+ MSK: no joint deformities, normal ROM Neuro: no focal neuro deficits, moving all 4 extremities, CN2-12 intact. Strength 5/5 in all 4 extremities. No nystagmus. Psych: calm, cooperative, AAO x 1 LABORATORY DATA, IMAGING STUDIES, MICROBIOLOGY: Please see below. Echocardiogram: ordered on 11/14/20 DVT prophylaxis ordered?: SCDs. TEDs. ASSESSMENT AND PLAN: This is an 85 y/o female with a pmh of advanced dementia, htn, breast ca s/p lumpectomy who reports to our ED on 11/13 with one of her home health aides with a cc of n/v/d and increasing fatigue over the past 2 weeks PROBLEMS: 1. SIRS - resolved. WBC trended down to 12. - will obtain procalcitonin level to r/o infection, as patient does not display signs of active infection. - possible source is UTI vs GI? Has no GI symptoms. - Urine Cx is negative. Blood cultures prelim neg at 72 hours - c/w rocephin - zofran for n/v - DC IVF. Patient tolerating diet - admit to med surg for tx -At this stage infectious work-up has been negative. Patient will complete 7 days of empiric ceftriaxone therapy. 2. Dementia - continue trazodone, buspar, ssri - patient sitter - patient has been pleasant and calm. 3. Elevated troponin -Patient continues to be chest pain-free - trop 0.05. 0.12.0.16. 0.15 - EKG shows no acute ischemic changes - ordered ASA 325 mg, lipitor 80 - 2D echo ordered, but the patient declined - I discussed with Dr. Bauman, believes this to be a Type II NC in setting of SIRS/Sepsis, and not true ACS - ASA/statin -According to my discussion with the patient's daughter Rowan barnett she does not wish for any aggressive intervention which would include geography and stenting. In the event of an acute coronary syndrome she will choose medical management only. 4. HTN - continue lisinopril 5. GERD - continue omeprazole 6. Hypokalemia - replaced 7. Hypomagnesemia - replaced DVT prophylaxis - mechanical Dispo: I had a conversation today with the patient's daughter Rowan Wilson who reports that over the past year the patient has lost the majority of home health aides. The daughter wishes to move to [place] to help her ill son. Most likely the patient will require placement at this time it is unknown whether the patient will require dementia unit. Patient will be transition to ALC status as they are now medically cleared. VS, I&O, 24H, Fishbone Vital Signs/I&O Vital Signs Date Time Temp Pulse Resp B/P (MAP) Pulse Ox O2 Delivery O2 Flow Rate FiO2 11/17/20 06:00 98.8 103 20 112/90 (97) 95 Room Air I&O- Last 24 Hours up to 6 AM 11/17/20 05:59 Intake Total 1220 ml Output Total 0 ml Balance 1220 ml Laboratory Data 24H LABS Laboratory Tests 2 11/17/20 05:25: Immature Granulocyte % (Auto) 0.4, Neutrophils (%) (Auto) 66.3H, Lymphocytes (%) (Auto) 18.9L, Monocytes (%) (Auto) 11.6H, Eosinophils (%) (Auto) 1.9, Basophils (%) (Auto) 0.9, Neutrophils # (Auto) 6.1, Lymphocytes # (Auto) 1.7, Monocytes # (Auto) 1.1H, Eosinophils # (Auto) 0.2, Basophils # (Auto) 0.1, Nucleated Red Blood Cells % (auto) 0.0, Anion Gap 10, Glomerular Filtration Rate > 60.0, Calcium Level 8.8, Magnesium Level 1.5L, Total Bilirubin 0.5, Aspartate Amino Transf (AST/SGOT) 21, Alanine Aminotransferase (ALT/SGPT) 11L, Alkaline Phosphatase 60, Total Protein 5.9L, Albumin 2.5L, Albumin/Globulin Ratio 0.7L CBC/BMP Laboratory Tests 11/17/20 05:25 Microbiology Microbiology 11/14/20 Blood Culture - Preliminary, Resulted No Growth after 72 hours. All specime... 11/14/20 Blood Culture - Preliminary, Resulted No Growth after 72 hours. All specime... 11/13/20 Urine Culture - Final, Complete JAIDEN CHANEY MD Nov 17, 2020 10:29
[2020-11-17] MEDS: MAG SULF 1GM/100ML (MAG RUN) 1 GM in IV 1 EA IV SCH ×2 (11:36→13:07)
[2020-11-17 14:00] VITALS: BP 138/88
[2020-11-17] MEDS: lisinopriL 40 MG TAB PO SCH ×2 (21:00→22:21)
[2020-11-17] MEDS: traZODone 50 MG TAB PO SCH ×2 (21:00→22:22)
[2020-11-17] MEDS: ATORVASTATIN 20 MG TAB PO SCH ×2 (21:00→22:22)
[2020-11-17 22:00] VITALS: BP 186/93
[2020-11-17] MEDS: cefTRIAXone SOD 1 GM in D5W MINI-BAG PLUS 50 ML IV SCH ×2 (22:00→22:23)
[2020-11-18] MEDS: HEPARIN SOD (PORCINE) 5000UNITS/ML 1ML VIAL/SYRINGE SQ SCH ×2 (05:30→13:32)
[2020-11-18 06:00] VITALS: BP 186/97
[2020-11-18 06:13] LABS: BASO # 0.1 10^3/uL (0.0-0.2); BASO % 0.7 % (0.0-1.0); EOS # 0.2 10^3/uL (0.0-0.5); EOS % 1.5 % (0.0-3.0); HEMATOCRIT 32.1 % (36.0-47.0); HEMOGLOBIN 10.8 g/dl (12.0-15.5); LYMPH # 1.7 10^3/uL (1.5-5.0); LYMPH % 16.6 % (24.0-44.0); MEAN CORPUSCULAR HEMOGLOBIN 28.6 pg (27.0-33.0); MEAN CORPUSCULAR HGB CONC 33.6 g/dl (32.0-36.5); MEAN CORPUSCULAR VOLUME 85.1 fl (80.0-96.0); MONO # 1.2 10^3/uL (0.0-0.8); MONO % 11.6 % (2.0-8.0); NEUTROPHILS # 7.2 10^3/uL (1.5-8.5); NEUTROPHILS % 69.2 % (36.0-66.0); PLATELET COUNT, AUTOMATED 380 10^3/uL (150-450); RED BLOOD COUNT 3.77 10^6/uL (4.00-5.40); WHITE BLOOD COUNT 10.5 10^3/uL (4.0-10.0)
[2020-11-18 06:44] LABS: ALBUMIN 2.8 GM/DL (3.2-5.2); ALT/SGPT 17 U/L (12-78); BILIRUBIN,TOTAL 0.5 MG/DL (0.2-1.0); BLOOD UREA NITROGEN 11 MG/DL (7-18); CALCIUM LEVEL 9.4 MG/DL (8.8-10.2); CARBON DIOXIDE LEVEL 24 MEQ/L (21-32); CHLORIDE LEVEL 108 MEQ/L (98-107); CREATININE FOR GFR 0.75 MG/DL (0.55-1.30); GLOMERULAR FILTRATION RATE > 60.0 (>32); GLUCOSE, FASTING 80 MG/DL (70-100); MAGNESIUM LEVEL 2.1 MG/DL (1.8-2.4); POTASSIUM SERUM 3.6 MEQ/L (3.5-5.1); SODIUM LEVEL 140 MEQ/L (136-145); TOTAL PROTEIN 6.3 GM/DL (6.4-8.2)
[2020-11-18] MEDS ORDERED: **hydrALAZINE** 50 MG TAB PO ONE (07:25)
--- NOTE | 2020-11-18 08:11 | ECGEPIP ---
[facility] Test Date: 2020-11-17 Pat Name: NOEMY SHERMAN Department: Room: [place] [address] Gender: Female [employer]: DIXON : 1935 Requested By: JAIDEN CHANEY Order Number: [id number] Reading MD: Anirudh Plasencia Measurements Intervals [place] Rate: 100 P: 55 DE: 136 QRS: 40 QRSD: 78 T: 64 QT: 352 QTc: 454 Interpretive Statements Sinus tachycardia Otherwise within normal limits Faster rate but otherwise unchanged from 11/14/20 Electronically Signed on 11-18-2020 8:10:41 EDT by Anirudh Plasencia
[2020-11-18] MEDS: ASPIRIN 81MG ENTERIC TABLET PO SCH (10:22)
[2020-11-18] MEDS: SERTRALINE HCL 25 MG TABLET PO SCH ×3 (10:22→22:08)
[2020-11-18] MEDS: OMEPRAZOLE 20 MG CAP PO SCH (10:22)
[2020-11-18] MEDS: busPIRone 5 MG TAB PO SCH ×3 (10:22→22:08)
[2020-11-18] MEDS: traZODone 25MG PER 1/2 TABLET PO SCH (10:22)
[2020-11-18 12:45] VITALS: BP 180/90
[2020-11-18] MEDS ORDERED: **hydrALAZINE HCL** 25 MG TAB PO ONE (13:05)
[2020-11-18] MEDS: amLODIPine 5 MG TAB PO SCH (13:32)
[2020-11-18 14:00] VITALS: BP 176/78
[2020-11-18 16:45] VITALS: BP 170/90
[2020-11-18] MEDS ORDERED: CAPTOpril 6.25 MG PER 1/2 TABLET PO ONE (16:50)
[2020-11-18] MEDS ORDERED: LABETALOL 100MG TAB PO ONE (16:50)
[2020-11-18] MEDS ORDERED: ISOVUE-370 76% 100ML VIAL As Ordered ONE (17:08)
--- NOTE | 2020-11-18 18:14 | REPVR ---
PROCEDURE INFORMATION: Exam: CTA Chest With Contrast Exam date and time: 11/18/2020 5:44 PM Age: 85 years old Clinical indication: Shortness of breath; Additional info: R/O pe TECHNIQUE: Imaging protocol: Computed tomographic angiography of the chest with contrast. 3D rendering (Not supervised by radiologist): MIP and/or 3D reconstructed images were created by the technologist. Radiation optimization: All CT scans at this facility use at least one of these dose optimization techniques: automated exposure control; mA and/or kV adjustment per patient size (includes targeted exams where dose is matched to clinical indication); or iterative reconstruction. Contrast material: ISOVUE 370; Contrast volume: 75 ml; Contrast route: INTRAVENOUS (IV); COMPARISON: CR Chest, 2 view PA, Lat 11/13/2020 6:14 PM FINDINGS: Pulmonary arteries: There are pulmonary emboli in the left lower lobe branches series 401, images 102 -107. There also pulmonary emboli in the right lower lobe series 401, images 98 -110. Aorta: No aneurysmal dilatation of the thoracic aorta or dissection. Atherosclerosis. Lungs: Surgical sutures medially right upper lobe and hilum consistent with prior right upper lobectomy. Pleural spaces: No pleural effusion. Heart: No cardiomegaly or pericardial effusion. Lymph nodes: No mediastinal or hilar lymphadenopathy. Bones/joints: Kyphoscoliosis in the thoracic spine. Soft tissues: Unremarkable. IMPRESSION: 1. Evidence of prior right upper lobectomy. 2. Bilateral pulmonary emboli. Electronically signed by: Reanna Arvizu On 11/18/2020 18:14:07 PM
[2020-11-18] MEDS: ENOXAPARIN 60MG/0.6ML SYRINGE (J1650 PER 10MG) SC SCH (18:30)
--- NOTE | 2020-11-18 19:17 | IPNPDOC ---
Date Seen The patient was seen on 11/18/20. Progress Note SUBJECTIVE: Patient seen and examined at bedside. She appears visibly confused but is alert. She states that she has no chest pain, no cough, no shortness of breath or subjective fevers or chills. She has been afebrile throughout the admission. Noted to have sinus tachycardia, rate ~ 105. OBJECTIVE PHYSICAL EXAMINATION: VITAL SIGNS: please see below General: NAD, comfortable HEENT: PERRLA, EOMI, sclerae clear Neck: supple, normal ROM, no JVD Respiratory: lungs CTAB, no wheeze, no rales, no crackles CVS: RRR, normal S1, S2, no murmurs Abdo: soft, no masses, no hepatosplenomegaly, BS+, no rebound tenderness Extremities: no edema, pulses 2+ MSK: no joint deformities, normal ROM Neuro: no focal neuro deficits, moving all 4 extremities, CN2-12 intact. Strength 5/5 in all 4 extremities. No nystagmus. Psych: calm, cooperative, AAO x 1 LABORATORY DATA, IMAGING STUDIES, MICROBIOLOGY: Please see below. Echocardiogram: ordered on 11/14/20 DVT prophylaxis ordered?: SCDs. TEDs. ASSESSMENT AND PLAN: This is an 85 y/o female with a pmh of advanced dementia, htn, breast ca s/p lumpectomy who reports to our ED on 11/13 with one of her home health aides with a cc of n/v/d and increasing fatigue over the past 2 weeks PROBLEMS: #. SIRS - resolved. WBC trended down to 12. - will obtain procalcitonin level to r/o infection, as patient does not display signs of active infection. - possible source is UTI vs GI? Has no GI symptoms. - Urine Cx is negative. Blood cultures prelim neg at 72 hours - c/w rocephin - zofran for n/v - DC IVF. Patient tolerating diet - admit to med surg for tx -At this stage infectious work-up has been negative. Patient will complete 7 days of empiric ceftriaxone therapy. #. Dementia - continue trazodone, buspar, ssri - patient sitter - patient has been pleasant and calm. #. Elevated troponin -Patient continues to be chest pain-free - trop 0.05. 0.12.0.16. 0.15 - EKG shows no acute ischemic changes - ordered ASA 325 mg, lipitor 80 - 2D echo ordered, but the patient declined - I discussed with Dr. Bauman, believes this to be a Type II DC in setting of SIRS/Sepsis, and not true ACS - ASA/statin -According to my discussion with the patient's daughter Rowan barnett she does not wish for any aggressive intervention which would include geography and ludin nting. In the event of an acute coronary syndrome she will choose medical management only. #.Sinus tachycardia - in context of recent trop elevation, obtained CTA/PE - showing bilateral PE - no hypoxia, no hypotension - obtain bilateral venous duplex. - started patient on lovenox #. HTN - continue lisinopril #. GERD - continue omeprazole #. Hypokalemia - replaced #. Hypomagnesemia - replaced DVT prophylaxis - mechanical Dispo: pending placement to halfway facility. Patient was made ALC status. On 11/18/20, given sinus tachycardia, a CTA was performed, whcih showed bilateral PE. Patient was started on lovenox. At this stage, remaining workup includes bilateral venous duplex at which point the patient can remain as ALC status. VS, I&O, 24H, [facility] Vital Signs/I&O Vital Signs Date Time Temp Pulse Resp B/P (MAP) Pulse Ox O2 Delivery O2 Flow Rate FiO2 11/18/20 17:09 95 170/90 11/18/20 14:00 98.7 18 96 Room Air I&O- Last 24 Hours up to 6 AM 11/18/20 06:00 Intake Total 320 ml Output Total 650 ml Balance -330 ml Laboratory Data 24H LABS Laboratory Tests 2 11/18/20 05:37: Immature Granulocyte % (Auto) 0.4, Neutrophils (%) (Auto) 69.2H, Lymphocytes (%) (Auto) 16.6L, Monocytes (%) (Auto) 11.6H, Eosinophils (%) (Auto) 1.5, Basophils (%) (Auto) 0.7, Neutrophils # (Auto) 7.2, Lymphocytes # (Auto) 1.7, Monocytes # (Auto) 1.2H, Eosinophils # (Auto) 0.2, Basophils # (Auto) 0.1, Nucleated Red Blood Cells % (auto) 0.0, Anion Gap 8, Glomerular Filtration Rate > 60.0, Calcium Level 9.4, Magnesium Level 2.1, Total Bilirubin 0.5, Aspartate Amino Transf (AST/SGOT) 20, Alanine Aminotransferase (ALT/SGPT) 17, Alkaline Phosphatase 60, Total Protein 6.3L, Albumin 2.8L, Albumin/Globulin Ratio 0.8L CBC/BMP Laboratory Tests 11/18/20 05:37 Microbiology Microbiology 11/14/20 Blood Culture - Preliminary, Resulted No Growth after 72 hours. All specime... 11/14/20 Blood Culture - Preliminary, Resulted No Growth after 72 hours. All specime... 11/13/20 Urine Culture - Final, Complete JAIDEN CHANEY MD Nov 18, 2020 19:17
[2020-11-18] MEDS: lisinopriL 40 MG TAB PO SCH ×2 (20:30→22:08)
[2020-11-18] MEDS: traZODone 50 MG TAB PO SCH ×2 (20:30→22:10)
[2020-11-18] MEDS: CEFDINIR 300 MG CAP (OMNICEF) PO SCH ×2 (20:30→22:07)
[2020-11-18] MEDS: ATORVASTATIN 20 MG TAB PO SCH ×2 (20:30→22:08)
--- NOTE | 2020-11-18 23:25 | REPVR ---
PROCEDURE INFORMATION: Exam: US Duplex Lower Extremity Veins, Bilateral Exam date and time: 11/18/2020 11:00 PM Age: 85 years old Clinical indication: Screening exam; Pe look for dvt; Additional info: Confirmed pe. R/O dvts. TECHNIQUE: Imaging protocol: Real-time duplex ultrasound of the extremities with 2-D baig scale, color Doppler flow and spectral waveform analysis with image documentation. Complete exam focused on the bilateral lower extremity veins. COMPARISON: CT ABD/PEL W/IV CONTRAST ONLY 11/13/2020 7:17 PM FINDINGS: Right deep veins: Unremarkable. The common femoral, femoral, proximal profunda femoral and popliteal veins are patent without thrombus. Normal Doppler waveforms. Normal compressibility and/or augmentation response. Right superficial veins: Saphenofemoral junction is patent without thrombus. Left deep veins: Unremarkable. The common femoral, femoral, proximal profunda femoral and popliteal veins are patent without thrombus. Normal Doppler waveforms. Normal compressibility and/or augmentation response. Left superficial veins: Saphenofemoral junction is patent without thrombus. Soft tissues: There are bilateral moderate-sized popliteal cysts which measure 3 cm x 1.6 cm on the right and 5 cm x 2.6 cm on the left. IMPRESSION: No evidence of deep vein thrombosis. Electronically signed by: Chandra Hill On 11/18/2020 23:25:15 PM
[2020-11-19 06:00] VITALS: BP 156/83
[2020-11-19] MEDS: ENOXAPARIN 60MG/0.6ML SYRINGE (J1650 PER 10MG) SC SCH (06:28)
[2020-11-19 09:49] LABS: BASO # 0.1 10^3/uL (0.0-0.2); EOS # 0.2 10^3/uL (0.0-0.5); EOS % 2.5 % (0.0-3.0); HEMATOCRIT 31.2 % (36.0-47.0); HEMOGLOBIN 10.3 g/dl (12.0-15.5); LYMPH # 1.3 10^3/uL (1.5-5.0); LYMPH % 15.6 % (24.0-44.0); MEAN CORPUSCULAR HEMOGLOBIN 28.5 pg (27.0-33.0); MEAN CORPUSCULAR VOLUME 86.4 fl (80.0-96.0); MONO % 11.9 % (2.0-8.0); NEUTROPHILS # 5.8 10^3/uL (1.5-8.5); NEUTROPHILS % 68.6 % (36.0-66.0); PLATELET COUNT, AUTOMATED 326 10^3/uL (150-450); RED BLOOD COUNT 3.61 10^6/uL (4.00-5.40); WHITE BLOOD COUNT 8.4 10^3/uL (4.0-10.0)
[2020-11-19] MEDS: busPIRone 5 MG TAB PO SCH ×2 (10:06→21:41)
[2020-11-19] MEDS: ASPIRIN 81MG ENTERIC TABLET PO SCH (10:06)
[2020-11-19] MEDS: CEFDINIR 300 MG CAP (OMNICEF) PO SCH ×2 (10:06→21:42)
[2020-11-19] MEDS: traZODone 25MG PER 1/2 TABLET PO SCH (10:06)
[2020-11-19] MEDS: amLODIPine 5 MG TAB PO SCH (10:09)
[2020-11-19] MEDS: OMEPRAZOLE 20 MG CAP PO SCH (10:09)
[2020-11-19] MEDS: SERTRALINE HCL 25 MG TABLET PO SCH ×2 (10:09→21:42)
[2020-11-19 10:26] LABS: ALBUMIN 2.6 GM/DL (3.2-5.2); ALT/SGPT 15 U/L (12-78); BILIRUBIN,TOTAL 0.6 MG/DL (0.2-1.0); BLOOD UREA NITROGEN 10 MG/DL (7-18); CALCIUM LEVEL 8.8 MG/DL (8.8-10.2); CARBON DIOXIDE LEVEL 24 MEQ/L (21-32); CHLORIDE LEVEL 107 MEQ/L (98-107); CREATININE FOR GFR 0.66 MG/DL (0.55-1.30); GLOMERULAR FILTRATION RATE > 60.0 (>32); GLUCOSE, FASTING 79 MG/DL (70-100); MAGNESIUM LEVEL 1.9 MG/DL (1.8-2.4); POTASSIUM SERUM 3.4 MEQ/L (3.5-5.1); SODIUM LEVEL 140 MEQ/L (136-145); TOTAL PROTEIN 5.6 GM/DL (6.4-8.2)
[2020-11-19] MEDS ORDERED: RIVAROXABAN 20 MG TAB (XARELTO) PO SCH (18:00)
[2020-11-19] MEDS: lisinopriL 40 MG TAB PO SCH (21:42)
[2020-11-19] MEDS: traZODone 50 MG TAB PO SCH (21:42)
[2020-11-19] MEDS: ATORVASTATIN 20 MG TAB PO SCH (21:42)
[2020-11-19 23:00] VITALS: BP 168/79
[2020-11-20] VITALS (7 sets, daily range): BP systolic 114–223; BP diastolic 63–103
[2020-11-20] MEDS: busPIRone 5 MG TAB PO SCH ×2 (09:00→20:47)
[2020-11-20] MEDS: ASPIRIN 81MG ENTERIC TABLET PO SCH (09:00)
[2020-11-20] MEDS: OMEPRAZOLE 20 MG CAP PO SCH (09:00)
[2020-11-20] MEDS: CEFDINIR 300 MG CAP (OMNICEF) PO SCH (09:00)
[2020-11-20] MEDS: SERTRALINE HCL 25 MG TABLET PO SCH ×2 (09:00→20:48)
[2020-11-20] MEDS: traZODone 25MG PER 1/2 TABLET PO SCH (09:00)
[2020-11-20] MEDS: amLODIPine 5 MG TAB PO SCH ×2 (09:00→14:47)
--- NOTE | 2020-11-20 15:09 | IPNPDOC ---
Text Note Date of Service The patient was seen on 11/20/20. NOTE Subjective: Patient refused to take oral medications in the morning, her blood pressure was elevated to 190/100. When the nurse tried to give him medication patient became aggressive and agitated. Will transfer patient to PCU for IV medication for elevated blood pressure I talked to her daughter Yana Ching [phone] who told me that she will come to the hospital on Wednesday to discuss hospice option. She told me that family would like to control her blood pressure with IV medication and continue anticoagulation. Objective: GENERAL APPEARANCE: In moderate distress HEENT: no scleral icterus, no JVD, EOMI CARDIOVASCULAR: S1S2 LUNGS: CTA ABDOMEN: soft & not tender w palpation MUSCULOSKELETAL: no cyanosis, no swelling INTEGUMENT: no generalized pallor NEUROLOGICAL: cranial nerve function from 2-12 intact, follows commands, speech not dysarthric Assessment and plan Patient is 85 y/o female with a pmh of advanced dementia, htn, breast ca s/p lumpectomy who reports to our ED on 11/13 with one of her home health aides with a cc of n/v/d and increasing fatigue over the past 2 weeks SIRS Resolved Urine culture negative, blood culture negative, procalcitonin negative DC antibiotics Uncontrolled hypertension Patient refused to take p.o. antihypertensive medications Labetalol IV as needed with parameters Advanced dementia with agitation and aggression Follow-up with neurologist in the outpatient settings I added Seroquel to her medical regimen IV Haldol as needed Bilateral pulmonary emboli Changing Xarelto to full dose of Lovenox Elevated troponin Most likely demand ischemia Trended down Patient denies any chest pain Sinus tachycardia Resolved GERD continue omeprazole Hypokalemia replaced Hypomagnesemia replaced VS,Fishbone, I+O VS, Fishbone, I+O Vital Signs Date Time Temp Pulse Resp B/P (MAP) Pulse Ox O2 Delivery O2 Flow Rate FiO2 11/20/20 14:47 95 195/100 11/20/20 09:00 20 96 11/19/20 06:00 97.0 Room Air I&O- Last 24 Hours up to 6 AM 11/20/20 06:00 Intake Total 300 ml Output Total 0 ml Balance 300 ml JAMESON FERRIS DO Nov 20, 2020 15:09
[2020-11-20] MEDS: LABETALOL 100MG/20ML VIAL IV PRN ×2 (17:42→20:42)
[2020-11-20] MEDS: ENOXAPARIN 60MG/0.6ML SYRINGE (J1650 PER 10MG) SC SCH (18:23)
[2020-11-20] MEDS: LORazepam 2 MG/ML VIAL IV PRN (20:41)
[2020-11-20] MEDS: lisinopriL 40 MG TAB PO SCH (20:47)
[2020-11-20] MEDS: ATORVASTATIN 20 MG TAB PO SCH (20:47)
[2020-11-20] MEDS: QUEtiapine FUMARATE 25 MG TAB PO SCH (20:48)
[2020-11-21] VITALS (8 sets, daily range): BP systolic 104–199; BP diastolic 56–115
[2020-11-21] MEDS: ENOXAPARIN 60MG/0.6ML SYRINGE (J1650 PER 10MG) SC SCH ×2 (05:55→18:16)
[2020-11-21] MEDS: OMEPRAZOLE 20 MG CAP PO SCH (09:00)
[2020-11-21] MEDS: ASPIRIN 81MG ENTERIC TABLET PO SCH (09:00)
[2020-11-21] MEDS: SERTRALINE HCL 25 MG TABLET PO SCH ×2 (10:50→21:00)
[2020-11-21] MEDS: amLODIPine 5 MG TAB PO SCH (10:50)
[2020-11-21] MEDS: QUEtiapine FUMARATE 25 MG TAB PO SCH ×2 (10:50→21:00)
--- NOTE | 2020-11-21 13:28 | IPNPDOC ---
Text Note Date of Service The patient was seen on 11/21/20. NOTE Subjective: Patient somnolent in the morning, refused to communicate. Patient still has very poor oral intake and refused p.o. medications. Objective: GENERAL APPEARANCE: In moderate distress HEENT: no scleral icterus, no JVD, EOMI CARDIOVASCULAR: S1S2 LUNGS: CTA ABDOMEN: soft & not tender w palpation MUSCULOSKELETAL: no cyanosis, no swelling INTEGUMENT: no generalized pallor NEUROLOGICAL: cranial nerve function from 2-12 intact, follows commands, speech not dysarthric Assessment and plan Patient is 85 y/o female with a pmh of advanced dementia, htn, breast ca s/p lumpectomy who reports to our ED on 11/13 with one of her home health aides with a cc of n/v/d and increasing fatigue over the past 2 weeks SIRS Resolved Urine culture negative, blood culture negative, procalcitonin negative DC antibiotics Uncontrolled hypertension Patient refused to take p.o. antihypertensive medications Labetalol IV as needed with parameters Advanced dementia with agitation and aggression Follow-up with neurologist in the outpatient settings Continue Seroquel to her medical regimen IV Haldol as needed Bilateral pulmonary emboli likely present on admission Continue full dose of Lovenox Elevated troponin Most likely demand ischemia Trended down Patient denies any chest pain Sinus tachycardia Resolved GERD continue omeprazole Hypokalemia replaced Hypomagnesemia replaced Transferred to [facility] Dahlia GONZALEZ, I+O VSDahlia I+O Vital Signs Date Time Temp Pulse Resp B/P (MAP) Pulse Ox O2 Delivery O2 Flow Rate FiO2 11/21/20 10:58 97.1 106 18 170/107 (128) 97 Room Air I&O- Last 24 Hours up to 6 AM 11/21/20 06:00 Intake Total 0 ml Output Total 0 ml Balance 0 ml JAMESON FERRIS DO Nov 21, 2020 13:28
[2020-11-21] MEDS: busPIRone 5 MG TAB PO SCH ×2 (13:33→21:00)
[2020-11-21] MEDS ORDERED: SLF 3 ML SYR IV PRN (15:40)
[2020-11-21] MEDS: LORazepam 2 MG/ML VIAL IV PRN ×2 (16:24→23:41)
[2020-11-21] MEDS: lisinopriL 40 MG TAB PO SCH (21:00)
[2020-11-21] MEDS: ATORVASTATIN 20 MG TAB PO SCH (21:00)
[2020-11-21] MEDS: SLF 3 ML SYR IV SCH (21:52)
[2020-11-22] VITALS: BP 158/78
[2020-11-22] MEDS: ENOXAPARIN 60MG/0.6ML SYRINGE (J1650 PER 10MG) SC SCH ×2 (05:53→17:31)
[2020-11-22] MEDS: SLF 3 ML SYR IV SCH ×3 (05:53→20:27)
[2020-11-22] MEDS: SERTRALINE HCL 25 MG TABLET PO SCH ×2 (09:00→20:38)
[2020-11-22] MEDS: QUEtiapine FUMARATE 25 MG TAB PO SCH ×2 (09:00→20:26)
[2020-11-22] MEDS: ASPIRIN 81MG ENTERIC TABLET PO SCH (09:00)
[2020-11-22] MEDS: amLODIPine 5 MG TAB PO SCH (09:00)
[2020-11-22] MEDS: OMEPRAZOLE 20 MG CAP PO SCH (09:00)
[2020-11-22] MEDS: busPIRone 5 MG TAB PO SCH ×2 (09:00→20:38)
[2020-11-22 09:30] VITALS: BP 213/139
[2020-11-22] MEDS: LORazepam 2 MG/ML VIAL IV PRN ×3 (09:39→23:01)
[2020-11-22 10:30] VITALS: BP 182/74
[2020-11-22] MEDS: LABETALOL 100MG/20ML VIAL IV PRN ×2 (10:39→11:43)
[2020-11-22 12:00] VITALS: BP 160/70
[2020-11-22 16:30] VITALS: BP 160/73
[2020-11-22] MEDS: lisinopriL 40 MG TAB PO SCH (20:26)
[2020-11-22] MEDS: ATORVASTATIN 20 MG TAB PO SCH (20:38)
[2020-11-23 04:18] LABS: BASO # 0.1 10^3/uL (0.0-0.2); BASO % 0.7 % (0.0-1.0); EOS # 0.1 10^3/uL (0.0-0.5); EOS % 0.8 % (0.0-3.0); HEMATOCRIT 31.5 % (36.0-47.0); HEMOGLOBIN 10.6 g/dl (12.0-15.5); LYMPH # 1.2 10^3/uL (1.5-5.0); LYMPH % 9.4 % (24.0-44.0); MEAN CORPUSCULAR HEMOGLOBIN 29.4 pg (27.0-33.0); MEAN CORPUSCULAR HGB CONC 33.7 g/dl (32.0-36.5); MEAN CORPUSCULAR VOLUME 87.3 fl (80.0-96.0); MONO # 1.5 10^3/uL (0.0-0.8); NEUTROPHILS # 9.8 10^3/uL (1.5-8.5); NEUTROPHILS % 76.7 % (36.0-66.0); PLATELET COUNT, AUTOMATED 371 10^3/uL (150-450); RED BLOOD COUNT 3.61 10^6/uL (4.00-5.40)
[2020-11-23 04:19] LABS: WHITE BLOOD COUNT 12.7 10^3/uL (4.0-10.0)
[2020-11-23 04:58] LABS: ALBUMIN 2.9 GM/DL (3.2-5.2); ALT/SGPT 35 U/L (12-78); BILIRUBIN,TOTAL 0.7 MG/DL (0.2-1.0); BLOOD UREA NITROGEN 18 MG/DL (7-18); CALCIUM LEVEL 10.1 MG/DL (8.8-10.2); CARBON DIOXIDE LEVEL 24 MEQ/L (21-32); CHLORIDE LEVEL 104 MEQ/L (98-107); CREATININE FOR GFR 0.68 MG/DL (0.55-1.30); GLOMERULAR FILTRATION RATE > 60.0 (>32); GLUCOSE, FASTING 99 MG/DL (70-100); MAGNESIUM LEVEL 1.8 MG/DL (1.8-2.4); POTASSIUM SERUM 3.6 MEQ/L (3.5-5.1); SODIUM LEVEL 139 MEQ/L (136-145); TOTAL PROTEIN 6.4 GM/DL (6.4-8.2)
[2020-11-23] MEDS: ENOXAPARIN 60MG/0.6ML SYRINGE (J1650 PER 10MG) SC SCH (05:45)
[2020-11-23] MEDS: SLF 3 ML SYR IV SCH ×3 (05:45→21:50)
[2020-11-23 08:00] VITALS: BP 113/90
[2020-11-23 08:52] VITALS: BP 113/90
[2020-11-23] MEDS: QUEtiapine FUMARATE 25 MG TAB PO SCH (08:52)
[2020-11-23] MEDS: OMEPRAZOLE 20 MG CAP PO SCH (08:52)
[2020-11-23] MEDS: busPIRone 5 MG TAB PO SCH (08:52)
[2020-11-23] MEDS: ASPIRIN 81MG ENTERIC TABLET PO SCH (08:52)
[2020-11-23] MEDS: SERTRALINE HCL 25 MG TABLET PO SCH (08:52)
[2020-11-23] MEDS: amLODIPine 5 MG TAB PO SCH (08:52)
[2020-11-23] MEDS ORDERED: ONDANSETRON 4 MG ORAL DISINTEGRATING TAB PO PRN (12:30)
[2020-11-23] MEDS ORDERED: ONDANSETRON 4MG/2ML VIAL IV PRN (12:30)
[2020-11-23] MEDS ORDERED: BISACODYL 10 MG SUPP PR PRN (12:30)
[2020-11-23] MEDS ORDERED: FLEET ENEMA PR PRN (12:30)
[2020-11-23] MEDS ORDERED: SCOPOLAMINE 1MG TRANSDERMAL PATCH TOP PRN (12:30)
[2020-11-23] MEDS ORDERED: MORPHINE 10MG/0.5ML ORAL CONCENTRATE SOLUTION U/D SL PRN (12:30)
[2020-11-23] MEDS ORDERED: ATROPINE SULFATE 1% OP SOLN 2 ML BTL SL PRN (12:30)
[2020-11-23] MEDS ORDERED: HYOSCYAMINE SULFATE 0.125 MG SUBL TABLET PO PRN (12:30)
[2020-11-23] MEDS ORDERED: LORazepam 1 MG TAB PO PRN (12:30)
--- NOTE | 2020-11-23 12:31 | IPNPDOC ---
Text Note Date of Service The patient was seen on 11/23/20. NOTE I talked with 2 daughters in the morning. They told me that they would like to proceed with comfort measures only. [employer] protocol. Hospice consult placed VSDahlia, I+O VSDahlia, I+O Laboratory Tests 11/23/20 03:20 Vital Signs Date Time Temp Pulse Resp B/P (MAP) Pulse Ox O2 Delivery O2 Flow Rate FiO2 11/23/20 08:52 80 113/90 11/22/20 12:00 98.5 14 99 Room Air I&O- Last 24 Hours up to 6 AM 11/23/20 06:00 Intake Total 0 ml Output Total 0 ml Balance 0 ml JAMESON FERRIS DO Nov 23, 2020 12:31
[2020-11-23] MEDS: LORazepam 2 MG/ML VIAL IV PRN ×2 (19:36→21:49)
[2020-11-23] MEDS: MORPHINE 2 MG/ML 1ML VIAL (J2270) IV PRN (22:47)
[2020-11-24] MEDS: MORPHINE 2 MG/ML 1ML VIAL (J2270) IV PRN ×5 (05:08→21:54)
[2020-11-24] MEDS: SLF 3 ML SYR IV SCH ×3 (06:00→20:03)
[2020-11-24] MEDS ORDERED: LORazepam 2 MG/ML VIAL As Ordered ONE (19:58)
[2020-11-24] MEDS: LORazepam 2 MG/ML VIAL IV PRN (20:03)
[2020-11-25] MEDS: MORPHINE 2 MG/ML 1ML VIAL (J2270) IV PRN ×3 (04:20→13:47)
[2020-11-25] MEDS: SLF 3 ML SYR IV SCH ×2 (04:21→11:02)
[2020-11-25] MEDS: LORazepam 2 MG/ML VIAL IV PRN ×2 (11:02→13:47)
[2020-11-25] MEDS ORDERED: ATIV1TAB7 PO (13:19)
[2020-11-25] MEDS ORDERED: ONDA4TAB6 PO (13:19)
[2020-11-25] MEDS ORDERED: MORP1SOL SL (13:19)
--- NOTE | 2020-11-25 13:23 | DS.PDOC ---
Discharge Summary General Date of Admission Nov 14, 2020 at 15:32 Date of Discharge 11/25/20 Discharge Summary PROCEDURES PERFORMED DURING STAY: [None]. ADMITTING DIAGNOSES: SIRS Uncontrolled hypertension Bilateral pulmonary emboli likely present on admission Elevated troponin GERD Sinus tachycardia Hypokalemia Hypomagnesemia Advanced dementia DISCHARGE DIAGNOSES: SIRS Uncontrolled hypertension Bilateral pulmonary emboli likely present on admission Elevated troponin GERD Sinus tachycardia Hypokalemia Hypomagnesemia Advanced dementia COMPLICATIONS/CHIEF COMPLAINT: Nausea,Vomiting,Diarrhea, Uti. HISTORY OF PRESENT ILLNESS: Patient is 85 y/o female with a pmh of advanced dementia, htn, breast ca s/p lumpectomy who reports to our ED on 11/13 with one of her home health aides with a cc of n/v/d and increasing fatigue over the past 2 weeks HOSPITAL COURSE: During hospital stay patient has been treated for UTI, uncontrolled hypertension. However patient developed failure to thrive and according to family wishes patient was transferred to [facility] DISCHARGE MEDICATIONS: Please see below. ALLERGIES: Please see below. PHYSICAL EXAMINATION ON DISCHARGE: VITAL SIGNS: Please see below. GENERAL APPEARANCE: In moderate distress HEENT: no scleral icterus, no JVD, EOMI CARDIOVASCULAR: S1S2 LUNGS: CTA ABDOMEN: soft & not tender w palpation MUSCULOSKELETAL: no cyanosis, no swelling INTEGUMENT: no generalized pallor NEUROLOGICAL: cranial nerve function from 2-12 intact, follows commands, speech not dysarthric LABORATORY DATA: Please see below. PROGNOSIS: Poor ACTIVITY: [As tolerated]. DIET: Regular DISPOSITION: Hospice DISCHARGE CONDITION: [Stable]. TIME SPENT ON DISCHARGE: 40minutes. Vital Signs/I&Os Vital Signs Date Time Temp Pulse Resp B/P (MAP) Pulse Ox O2 Delivery O2 Flow Rate FiO2 11/25/20 04:30 Room Air 11/23/20 22:57 18 11/23/20 08:52 80 113/90 11/22/20 12:00 98.5 99 I&O- Last 24 Hours up to 6 AM 11/25/20 06:00 Intake Total 0 ml Balance 0 ml Discharge Medications Scheduled PRN Lorazepam (Ativan) 1 Mg Tablet, 1 MG PO Q2HP PRN for ANXIETY Morphine Sulfate (Morphine Sulfate Concentrate) 100 Mg/5 Ml Solution, 2 MG SL Q2HP PRN for SEVERE PAIN (PS 8-10) Ondansetron (Ondansetron Odt) 4 Mg Tab.brenda 4 MG PO Q6HP PRN for NAUSEA OR VOMITING Allergies Coded Allergies: No Known Allergies (Unverified , 11/13/20) JAMESON FERRIS DO Nov 25, 2020 13:23
== END 2020-11-25 16:13 | disposition hospice, home (50) | DRG 175 ==
LOC: M ED 13:44 → M ED INP 13:45 → ENRESERV 11-14 00:30 → M MSPAV 11-14 01:51 → OBSVTOIN 11-14 15:32 → M PCU 11-20 17:20 → M MSPAV 11-24 01:13
PROVIDERS: ADMIT Internal Medicine; ATTEND Internal Medicine
DX: I26.99 Other pulmonary embolism without acute cor pulmonale (principal); I21.A1 Myocardial infarction type 2; F03.91 Unspecified dementia, unspecified severity, with behavioral disturbance; N39.0 Urinary tract infection, site not specified; Z68.1 Body mass index [BMI] 19.9 or less, adult; I10 Essential (primary) hypertension; E87.6 Hypokalemia; E83.42 Hypomagnesemia; Z85.3 Personal history of malignant neoplasm of breast; K21.9 Gastro-esophageal reflux disease without esophagitis; Z51.5 Encounter for palliative care; Z79.899 Other long term (current) drug therapy